=== PATIENT | male | born 1985 | race Caucasian/White ===

== ENCOUNTER 2016-10-26 21:33 | Emergency (ER) | payer MEDICAID ==
[2016-10-26 21:42] VITALS: BP 117/75; PULSE 87; RESP 20; TEMP 98.9; O2SAT 97
--- NOTE | 2016-10-26 22:54 | C.PDOC ---
History Of Present Illness A 31 y/o M c/o pain and swelling to the right hand that occurred today. While playing basketball the pt tripped and landed on his right hand. Denies weakness , numbness or any other complaints. Time Seen by Provider: 10/26/16 22:41 Chief Complaint (Nursing): Finger,Hand,&Wrist History Per: Patient History/Exam Limitations: no limitations Onset/Duration Of Symptoms: Hrs Current Symptoms Are (Timing): Still Present Severity: Mild Exacerbating Factor(s): Movement Recent travel outside of the [place]: No Additional History Per: Patient Past Medical History Reviewed: Historical Data, Nursing Documentation, Vital Signs Vital Signs: Last Vital Signs Temp 98.9 F 10/26/16 21:38 Pulse 87 10/26/16 21:38 Resp 20 10/26/16 21:38 BP 117/75 10/26/16 21:38 Pulse Ox 97 10/27/16 03:23 - Medical History PMH: Anxiety, Schizophrenia - [facility] Procedures CL REDUC DISLOC-ELBOW (04/18/14) Family History: States: Unknown Family Hx - Social History Hx Tobacco Use: No Hx Alcohol Use: No Hx Substance Use: No - Immunization History Hx Tetanus Toxoid Vaccination: No Hx Influenza Vaccination: No Hx Pneumococcal Vaccination: No Review Of Systems Except As Marked, All Systems Reviewed And Found Negative. Constitutional: Negative for: Fever, Chills Gastrointestinal: Negative for: Nausea, Vomiting Musculoskeletal: Positive for: Hand Pain (Right hand pain and swelling) Neurological: Negative for: Weakness, Numbness Physical Exam - Physical Exam Appears: Non-toxic, No Acute Distress Skin: Warm, Dry Head: Atraumatic, Normacephalic Eye(s): bilateral: Normal Inspection Extremity: No Normal ROM (Limited ROM due to pain ), Tenderness (Tenderness to the 4th and 5th MCP with minimal swelling.), Capillary Refill (<2secs), No Deformity, Other (Wrist normal) Pulses: Left Radial: Normal, Right Radial: Normal Neurological/Psych: Oriented x3, Normal Speech, Normal Cognition, Normal Motor, Normal Sensation, Other (No focal deficit) ED Course And Treatment O2 Sat by Pulse Oximetry: 97 (RA) Pulse Ox Interpretation: Normal - Other Rad XRAY right hand X-Ray: Interpreted by Me, Viewed By Me Interpretation: No acute fractures or dislocation. Progress Note: Impression: A 31 y/o M c/o pain and swelling to the right hand that occurred today. Plans: Tylenol, XRAY right hand. XRAY left hand: no fractures or dislocation. Pt requested raymundo wrap and was instructed to follow up with PMD for further evaluation. Pt was given return precautions. Disposition - Disposition Referrals: [facility] [Outside] [facility] [Outside] Disposition: HOME/ ROUTINE Disposition Time: 22:51 Condition: STABLE Additional Instructions: Apply ICE Take motrin PO Elevate arm Follow up with PMD Return to ER if worse Prescriptions: Ibuprofen [Motrin] 600 mg PO Q6H #20 tab Instructions: Contusion in Adults (ED), Hand Sprain (ED) - Clinical Impression Clinical Impression: Hand contusion - Scribe Statement The provider has reviewed the documentation as recorded by the Scribe Dominga barrera All medical record entries made by the Scribe were at my direction and personally dictated by me. I have reviewed the chart and agree that the record accurately reflects my personal performance of the history, physical exam, medical decision making, and the department course for this patient. I have also personally directed, reviewed, and agree with the discharge instructions and disposition.
--- NOTE | 2016-10-27 13:42 | RAD ---
Right hand four views History: Fall. Pain. Comparison: None available. Findings: Limited study as the patient is unable to extend the 4th and 5th digits. No evidence of acute displaced fracture or dislocation. Impression: Limited study. Negative acute. If pain persists, consider MRI.
== END 2016-10-26 23:08 | disposition home or self-care (01) ==
LOC: C.ER 21:33
DX: S60.221A Contusion of right hand, initial encounter (principal); W01.0XXA Fall on same level from slipping, tripping and stumbling without subsequent striking against object, initial encounter; Y93.67 Activity, basketball; Y92.89 Other specified places as the place of occurrence of the external cause

== ENCOUNTER 2017-10-15 01:26 | Emergency (ER) | payer MEDICAID, OTHER ==
--- NOTE | 2017-10-15 01:41 | C.PDOC ---
History Of Present Illness Patient brought in by [facility] for depression and suicidal ideation with no plan. Patient is anxious and slightly agitated, he has had numerous incarcerations in the past. Denies physical complaints at this time. Time Seen by Provider: 10/15/17 01:40 Chief Complaint (Nursing): Psychiatric Evaluation History Per: Patient History/Exam Limitations: no limitations Onset/Duration Of Symptoms: Hrs Current Symptoms Are (Timing): Still Present Suicide/Self Injury Attempted (Context): None Modifying Factor(s): None Associated Symptoms: Depression, Suicidal Thoughts. denies: Suicidal Plan Involuntary Hold By: None Recent travel outside of the [place]: No Past Medical History Reviewed: Historical Data, Nursing Documentation, Vital Signs Vital Signs: Last Vital Signs Temp 99.2 F 10/15/17 01:33 Pulse 110 H 10/15/17 01:33 Resp 18 10/15/17 01:33 BP 110/81 10/15/17 01:33 Pulse Ox 98 10/15/17 05:53 - Medical History PMH: Anxiety, Post Traumatic Stress Disorder, Schizophrenia - [facility] Procedures CL REDUC DISLOC-ELBOW (04/18/14) Family History: States: No Known Family Hx - Social History Hx Tobacco Use: No Hx Alcohol Use: Yes Hx Substance Use: Yes (MARIJUANA) - Immunization History Hx Tetanus Toxoid Vaccination: No Hx Influenza Vaccination: No Hx Pneumococcal Vaccination: No Review Of Systems Constitutional: Negative for: Fever, Chills Cardiovascular: Negative for: Chest Pain, Palpitations Respiratory: Negative for: Cough, Shortness of Breath Gastrointestinal: Negative for: Nausea, Vomiting Psych: Positive for: Depression, Suicidal ideation (No plan) Physical Exam - Physical Exam Appears: Non-toxic Skin: Warm, Dry Head: Normacephalic Oral Mucosa: Moist Chest: Symmetrical, No Tenderness Cardiovascular: Rhythm Regular Respiratory: No Rales, No Rhonchi, No Wheezing Gastrointestinal/Abdominal: Soft, No Tenderness Neurological/Psych: Oriented x3 ED Course And Treatment - Laboratory Results Result Diagrams: 10/15/17 01:41 10/15/17 02:09 O2 Sat by Pulse Oximetry: 98 (Room air) Pulse Ox Interpretation: Normal Progress Note: Patient was seen by crisis, awaiting blood work and urinalysis. Pt was cleared for discharge by dr morrison with a prescription of seroqquel 50 mg for 4 days Disposition Counseled Patient/Family Regarding: Studies Performed, Diagnosis, Need For Followup, Rx Given - Disposition Disposition: HOME/ ROUTINE Disposition Time: 01:41 Condition: FAIR Additional Instructions: Please follow up with [facility] Prescriptions: QUEtiapine [SEROquel] 50 mg PO HS #4 tab Instructions: Schizoaffective Disorder (DC) Forms: [employer] (Romanian) - Clinical Impression Clinical Impression: Schizoaffective disorder - Scribe Statement The provider has reviewed the documentation as recorded by the Scribesther Storm All medical record entries made by the Joanneibesther were at my direction and personally dictated by me. I have reviewed the chart and agree that the record accurately reflects my personal performance of the history, physical exam, medical decision making, and the department course for this patient. I have also personally directed, reviewed, and agree with the discharge instructions and disposition.
[2017-10-15 02:14] LABS: BASO # 0.1 K/uL (0.0-0.2); BASO % 0.8 % (0.0-2.0); EOS # 0.1 K/uL (0.0-0.7); EOS % 0.6 % (0.0-4.0); HEMOGLOBIN 15.3 g/dL (12.0-18.0); LYMPH # 3.2 K/uL (1.0-4.3); LYMPH % 28.7 % (20.0-40.0); MEAN CELL VOLUME 89.1 fL (80.0-94.0); MEAN CORPUSCULAR HGB CONC 33.6 g/dL (33.0-37.0); MEAN PLATELET VOLUME 9.8 fL (7.2-11.7); MONO # 0.5 K/uL (0.0-0.8); MONO % 4.6 % (0.0-10.0); NEUT # 7.2 K/uL (1.8-7.0); NEUT % 65.3 % (50.0-75.0); NRBC % 0.1 % (0.0-2.0); RBC 5.12 Mil/uL (4.40-5.90); RED CELL DISTRIBUTION WIDTH 13.5 % (11.5-14.5)
[2017-10-15 02:41] LABS: ALB/GLOB RATIO 1.6 (1.0-2.1); ALBUMIN 4.6 g/dL (3.5-5.0); ALT/SGPT 34 U/L (21-72); AST/SGOT 31 U/L (17-59); BLOOD UREA NITROGEN 13 mg/dL (9-20); CALCIUM 9.4 mg/dl (8.6-10.4); GFR AFRICAN-AMERICAN > 60; GFR NON-AFRICAN AMERICAN > 60
[2017-10-15 03:24] LABS: URINE BILIRUBIN NEGATIVE (NEGATIVE); URINE BLOOD NEGATIVE (NEGATIVE); URINE CLARITY Clear (Clear); URINE COLOR Yellow (YELLOW); URINE GLUCOSE (UA) NORMAL (Normal); URINE LEUKOCYTE ESTERASE NEG Leu/uL (Negative); URINE PROTEIN NEGATIVE (NEGATIVE); URINE UROBILINOGEN NORMAL mg/dL (0.2-1.0)
[2017-10-15 03:38] LABS: BARBITURATES, UR NEGATIVE (NEGATIVE); BENZODIAZEPINES, UR NEGATIVE (NEGATIVE); OPIATES, UR NEGATIVE (NEGATIVE); PHENCYCLIDINE, UR NEGATIVE (NEGATIVE)
[2017-10-15 06:25] VITALS: BP 105/67; PULSE 89; RESP 16; TEMP 99.3; O2SAT 95
== END 2017-10-15 06:25 | disposition home or self-care (01) ==
LOC: C.ER 01:26
DX: F25.9 Schizoaffective disorder, unspecified (principal)